=== PATIENT | female | born 2000 | race Caucasian/White ===

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

== ENCOUNTER 2023-02-01 23:02 | Inpatient (IN) ==
[2023-02-02] MEDS ORDERED: Promethazine INJ(RESTRICTED) 25 MG/ML 1 ml VIAL IM PRN (02:36)
[2023-02-02] MEDS ORDERED: Morphine 10 MG/ML VIAL (1 ml) IM ONE (02:36)
[2023-02-02] MEDS ORDERED: Lactated Ringers 1000 ml BAG 1,000 ML IV ONE ×2 (09:29→12:55)
[2023-02-02] MEDS ORDERED: Lidocaine 1% VIAL 10 MG/ML 30 ML VIAL INJ PRN (09:29)
[2023-02-02] MEDS ORDERED: Buffered Lidocaine 1% SYRIN 1 ml INTRADERM ONE (09:29)
[2023-02-02 10:00] LABS: ABS Neutrophils 9.6 10^3/uL (1.5-7.6); Eosinophil % 0.3 %; Hematocrit 32.4 % (35-45); Hemoglobin 11.2 g/dL (11.5-14.3); Lymphocyte % 8.9 %; Mean Corpuscular Hemoglobin 31.5 pg (27-33); Mean Corpuscular Hgb Conc 34.7 g/dL (31-36); Mean Corpuscular Volume 90.7 fL (80-97); Mean Platelet Volume 9.3 fL (7.5-11.2); Platelet Count 152 10^3/uL (150-450); Red Blood Count 3.57 10^6/uL (3.63-4.92); Red Cell Distribution Width 13.7 % (12-17); White Blood Count 11.8 10^3/uL (3.8-11.8)
[2023-02-02] MEDS ORDERED: Lactated Ringers 1000 ml BAG 1,000 ML IV SCH ×2 (10:00→13:00)
[2023-02-02 10:32] LABS: Urine Benzodiazepine Screen None Detected (None Detect); Urine Cannabinoids Screen None Detected (None Detect); Urine Opiates Screen None Detected (None Detect)
[2023-02-02] MEDS ORDERED: Bupivacaine 0.5% SDV PF 30ML VIAL ONE (12:50)
[2023-02-02] MEDS ORDERED: OBEPIDURAL (200 ML) 200 ML EPIDURAL ONE (12:51)
[2023-02-02] MEDS ORDERED: Phenylephrine 40 mcg/mL 10mL (400mcg) SYRINGE IV PUSH PRN ×2 (12:55)
[2023-02-02] MEDS ORDERED: OBEPIDURAL (200 ML) 200 ML EPIDURAL SCH (13:00)
[2023-02-02 14:18] LABS: Urine Appearance Clear; Urine Bilirubin Negative (Negative); Urine Blood 2+ (Negative); Urine Color Yellow; Urine Glucose Negative (Negative); Urine Ketones Negative (Negative); Urine Nitrite Negative (Negative); Urine Protein 1+(30 mg/dL) (Negative); Urine Specific Gravity 1.006 (1.002-1.030); Urine Urobilinogen Negative (Negative)
[2023-02-02 14:32] LABS: Urine Bacteria Absent (Absent); Urine Red Blood Cell 3+(>10/hpf) (Absent); Urine Squamous Epithelial Cell Present (Absent); Urine White Blood Cell Trace(0-5/hpf) (Absent)
[2023-02-02] MEDS ORDERED: Oxytocin in LR 20,000 MILLI.UNIT/1,000 ML BAG IV SCH ×2 (18:00→20:20)
[2023-02-02] MEDS ORDERED: Dibucaine 1% OINT 28.35 GM TUBE PR PRN (20:20)
[2023-02-02] MEDS ORDERED: Glycerin ADULT 2.4 gm SUPP PR PRN (20:20)
[2023-02-02] MEDS ORDERED: Witch Hazel PAD JAR TOPICAL PRN (20:20)
[2023-02-03] MEDS ORDERED: Phenylephrine 40 mcg/mL 10mL (400mcg) SYRINGE ONE (00:46)
[2023-02-03 07:27] LABS: ABS Lymphocytes 0.8 10^3/uL (1.0-4.8); ABS Monocytes 1.2 10^3/uL (0.0-0.9); ABS Neutrophils 10.2 10^3/uL (1.5-7.6); Eosinophil % 0.3 %; Hematocrit 32.4 % (35-45); Hemoglobin 11.5 g/dL (11.5-14.3); Lymphocyte % 6.8 %; Mean Corpuscular Hemoglobin 31.9 pg (27-33); Mean Corpuscular Hgb Conc 35.4 g/dL (31-36); Mean Corpuscular Volume 90.2 fL (80-97); Mean Platelet Volume 8.9 fL (7.5-11.2); Platelet Count 144 10^3/uL (150-450); Red Blood Count 3.59 10^6/uL (3.63-4.92); Red Cell Distribution Width 13.7 % (12-17); White Blood Count 12.2 10^3/uL (3.8-11.8)
[2023-02-03 19:56] VITALS: BP 119/75
== END 2023-02-04 13:01 | disposition home or self-care (01) | DRG 560 ==
LOC: MCHOBOUT 23:02 → MCHOB 02-02 09:10
PROVIDERS: ADMIT Midwife; ATTEND Midwife